=== PATIENT | female | born 2000 | race Two or more races ===

== ENCOUNTER 2025-06-16 02:20 | Emergency (ER) | payer SELFPAY ==
[2025-06-16 02:21] VITALS: BMI 31.8
[2025-06-16 02:27] VITALS: BP 116/79; PULSE 92; RESP 18; TEMP 37.2; O2SAT 99
--- NOTE | 2025-06-16 02:40 | XR_ITS ---
Examination: CT abdomen and pelvis without contrast. Coronal 3-D reconstructions. Sagittal 2-D reconstructions. Date and time of exam:June 16, 2025, 0425 hours INDICATIONS: Epigastric pain back pain beginning today CTDI: vol (mGy): 12.7 DLP: (mGycm): 727 Technique: Axial images of the abdomen have been obtained, 3 mm slice thickness Intravenous contrast material has not been administered. Low dose protocols were performed. One or more of the following dose reduction techniques were used; automated exposure control, adjustment of the mA and/or KV according to patient size, use of iterative reconstruction technique. Findings: Atelectasis in the right lower lobe No focal liver or splenic lesions Suspicious for gallstones No pancreatic or adrenal mass. No renal or ureteral calculi Aorta normal size No bowel obstruction Normal appendix No diverticulitis No pelvic mass Contracted urinary bladder IMPRESSION: Suspicious for gallstones, gallbladder wall is not thickened Normal appendix No bowel obstruction
--- NOTE | 2025-06-16 02:58 | PD.EDBACK ---
ED Back Injury Pain RME/HPI General Chief Complaint: Back Pain/Injury Stated Complaint: BACK PAIN X 1DAY Time Seen by Provider: 06/16/25 02:40 Arrival date/time: 06/16/25 02:20 24F with no significant PMH presents to ED with 1 day of sudden back pain and N/V. Patient denies dysuria/hematuria, bowel/bladder incontinence, URI symptoms, hematuria/dysuria, SOB, and paresthesia. Limitations: no limitations Related Data Previous Rx's ?Medication ?Instructions ?Recorded ondansetron 4 mg disintegrating 1 tab PO Q6HR PRN VOMITING #20 tabs 09/21/17 tablet (Zofran ODT) Allergies Allergy/AdvReac Type Severity Reaction Status Date / Time NKA* Allergy Uncoded 09/21/17 17:42 Review of Systems Review of Systems Systems Reviewed: All systems reviewed, normal except as documented Constitutional Constitutional: Reports system reviewed and no additional complaints, except as documented, Denies fever(s) and Denies headache(s) ENT Ears, Nose, Mouth, and Throat: Denies disequilibrium and Denies headache(s) Cardiovascular Cardiovascular: Reports system reviewed and no additional complaints, except as documented, Denies chest pain and Denies dyspnea Respiratory Respiratory: Reports system reviewed and no additional complaints, except as documented, Denies cough and Denies dyspnea Gastrointestinal Gastrointestinal: Reports system reviewed and no additional complaints, except as documented, Reports as per HPI, Denies abdominal pain, Reports nausea and Reports vomiting Musculoskeletal Musculoskeletal: Reports as per HPI and Reports back pain Neurologic Neurologic: Reports system reviewed and no additional complaints, except as documented, Denies confusion, Denies disequilibrium and Denies headache(s) Psychiatric Psychiatric: Denies confusion Past Medical History Social History SMOKING STATUS: Never smoker ED Exam General Limitations: Present no limitations General appearance: Present alert and in no apparent distress Head Head exam: Present atraumatic Eye Eye exam: Present normal appearance, PERRL and EOMI ENT ENT exam: Present normal exam, normal oropharynx and mucous membranes moist Neck Neck exam: Present normal inspection, full ROM and trachea midline Chest Chest inspection: Present normal inspection and symmetric chest wall rise Respiratory Respiratory exam: Present normal lung sounds bilaterally Cardiovascular Cardiovascular exam: Present regular rate, normal rhythm and normal heart sounds Abdominal Exam Abdominal exam: Present soft and normal bowel sounds Extremities Exam Extremities exam: Present normal inspection and full ROM Back Exam Back exam: Present full ROM and tenderness Neurological Exam Neurological exam: Present alert, oriented X3 and CN II-XII intact Psychiatric Psychiatric exam: Present normal affect and normal mood Skin Skin exam: Present warm, dry, intact and normal color Course Quality Measures none Orders Category Date Time Status CT abdomen pelvis wo con Stat Exams 06/16/25 02:40 Taken CBC Stat Lab 06/16/25 03:00 Completed CMP [Comprehensive Metabolic Panel] Stat Lab 06/16/25 03:00 Completed Drug Screen,Urine Stat Lab 06/16/25 03:15 Completed HCG Qualitative,Urine Stat Lab 06/16/25 03:15 Completed Lipase Stat Lab 06/16/25 03:00 Completed Urinalysis, C/S if Indicated Stat Lab 06/16/25 03:15 Completed Naproxen [Naprosyn] Med 06/16/25 02:41 Discontinued 500 mg PO X1 ONE Ondansetron Odt [Zofran Odt] Med 06/16/25 02:41 Discontinued 4 mg PO X1 ONE Vital Signs Vital signs: Vital Signs Temperature 99 F 06/16/25 02:27 Pulse Rate 92 06/16/25 02:27 Respiratory Rate 18 06/16/25 02:27 Blood Pressure 116/79 06/16/25 02:27 Pulse Oximetry (%) 99 06/16/25 02:27 Oxygen Delivery Method Room Air 06/16/25 02:27 O2 at 99% on RA and WNLs Back Pain / Injury MDM Narrative MDM Narrative:: 24F with no significant PMH presents to ED with 1 day of sudden back pain and N/V. Patient denies dysuria/hematuria, bowel/bladder incontinence, URI symptoms, hematuria/dysuria, SOB, and paresthesia. Physical exam reveals some mid/low back tenderness. Patient is afebrile, calm, and alert. Telerad CT reading unremarkable except gallstones. Possible PNA, but patient denies cough. No leukocytosis. CMP unremarkable. Lipase normal. UA some RBCs, but no UTI. HCG neg. Meds improved symptoms. Back pain likely MSK in nature. [employer] given. Patient data External records reviewed:: [facility] previous records Clinical information provided by:: patient Social determinants that could affect healthcare access:: none Patient has the following chronic illnesses:: none How is presenting disease/condition affected by chronic disease/condition?: no chronic disease Evaluation data The following diagnostics were reviewed and interpreted by me:: lab results and radiology exam(s) Lab and/or radiology exams considered but not ordered:: ordered Interpretation Summary: above Medications / Prescriptions Medications or Prescriptions considered but not ordered:: ordered Medication administrations:: Medication Administration History Discontinued Medications Naproxen (Naproxen 250 Mg Tablet) 500 mg PO X1 ONE Stop: 06/16/25 02:42 Last Admin: 06/16/25 03:00 Dose: 500 mg Documented By: CHRISTEN Ondansetron HCl (Ondansetron Odt 4 Mg Tabrap) 4 mg PO X1 ONE; Protocol Stop: 06/16/25 02:42 Last Admin: 06/16/25 03:01 Dose: 4 mg Documented By: CHRISTEN above Consultations Consultation(s) initiated? (list below): No Diagnosis Differential diagnosis back pain/injury: lumbar radiculopathy, sciatica, strain of lumbar region, renal colic, pyelonephritis, thoracic back pain, AAA and discitis Most likely diagnosis given after review of the tests above:: back pain Admission Indicated Admission indicated?: not indicated Admission Request Was there a request for admission?: No Disposition Plan Disposition Plan: Discharge Discharge Attestation Discharge Attestation: The patient and all family members were given an opportunity to ask questions and understood the discharge instructions. Discharge instructions specifically effects, indications for sooner follow up or return to the emergency department, and the expected course of current diagnosis. Patient condition: Stable Discharge Plan Plan Patient Disposition: HOME (Self Care) Discharge Disposition comment: Stable Prescriptions/Referrals Prescriptions/Med Rec: No Action ondansetron [Zofran ODT] 4 MG/UDTABLET tablet,disintegrating 1 tab PO Q6HR PRN (Reason: VOMITING) Qty: 20 0RF Referrals: No Primary/Family,Physician [Primary Care Provider] - In 1 week Problem List Clinical Impression: Back pain Patient/Caregiver Discharge Instructions Education Materials: ED Back Pain (Acute or Chronic) Additional Instructions: Please follow-up with PCP within 24-48 hours and return immediately if symptoms worsen. If problem persists, recommend outpatient PT and/or MRI follow-up. In the meantime, rest, use ice/heat, and/or compression. Print Language: Setswana Stand Alone Forms: Patient Portal Info Letter NICHOLAS/REYNOLD Supervising Physician NICHOLAS/REYNOLD Supervising Physician: Dr. Pappas
[2025-06-16] MEDS: NAPROXEN 250 MG TABLET 500 MG PO (03:00)
[2025-06-16] MEDS: ONDANSETRON ODT 4 MG TABRAP PO (03:01)
[2025-06-16 03:13] LABS: Basophils # (Auto) 0.1 Thou/mm3 (0.0-0.2); Basophils % (Auto) 1 % (0-2.5); Eosinophils # (Auto) 0.3 Thou/mm3 (0.0-0.5); Eosinophils % (Auto) 3 % (0-10); Hematocrit 40.4 % (36.0-46.0); Hemoglobin 13.5 g/dL (12.0-16.0); Immature Granulocytes Auto 0.05 Thou/mm3 (0.00-0.00); Lymphocytes # (Auto) 5.2 Thou/mm3 (1.0-4.8); Lymphocytes % (Auto) 47 % (10-50); Mean Corpuscular HGB Conc 33.4 g/dl (31.0-37.0); Mean Corpuscular Hemoglobin 29.0 pg (25.0-35.0); Mean Corpuscular Volume 87 fL (80-100); Monocytes # (Auto) 0.7 Thou/mm3 (0.0-0.8); Monocytes % (Auto) 6 % (0-12); Neutrophils # (Auto) 4.8 Thou/mm3 (1.8-7.7); Neutrophils % (Auto) 44 % (37-80); Nucleated Red Blood Cell # 0.00 Thou/mm3 (0.00-0.00); Nucleated Red Blood Cell % 0 /100 WBC (0); Platelet Count 230 Thou/mm3 (140-440); RDW Standard Deviation 38.6 fL (36.4-46.3); Red Blood Count 4.66 Miln/mm3 (4.00-5.20); White Blood Count 11.0 Thou/mm3 (3.6-11.0)
[2025-06-16 03:29] LABS: Collection Type, Urine Clean Catch
[2025-06-16 03:33] LABS: Alanine Aminotransferase 25 U/L (10-49); Albumin, Serum 4.4 gm/dL (3.5-5.0); Albumin/Globulin Ratio 1.6 (1.2-2.2); Alkaline Phosphatase 80 U/L (46-116); Anion Gap 8 (7-16); Aspartate Amino Transferase 47 U/L (0-34); BUN/Creatinine Ratio 10 Ratio (12-20); Bilirubin,Total 0.3 mg/dL (0.3-1.2); Blood Urea Nitrogen 7 mg/dL (9-23); Calcium 9.7 mg/dL (8.3-10.6); Calcium (Corrected) 9.7 mg/dL (8.5-10.1); Carbon Dioxide 27.5 mMol/L (20.0-31.0); Chloride 107 mMol/L (98-107); Creatinine (Component) 0.7 mg/dL (0.6-1.3); Estimated Creatinine Clearance 125.4 mL/min (>60); Globulin 2.7 gm/dL (2.3-3.5); Glucose 103 mg/dL (74-106); Lipase 28 U/L (12-53); Osmolality,Calculated 281 (275-295); Potassium 3.7 mMol/L (3.4-5.1); Sodium 142 mMol/L (136-145); Total Protein 7.1 gm/dL (5.7-8.2); eGFR > 60 See Note
[2025-06-16 03:36] LABS: Bilirubin,Urine Negative (Negative); Blood,Urine 1+ (Negative); Clarity,Urine Clear (Clear/Hazy); Color,Urine Lt-Yellow (Lt Yel-Yel); Culture Indicated,Urine Not Indicated; Glucose, Urine Negative (Negative); Ketones,Urine Negative (Negative); Leukocyte Esterase,Urine Positive (Negative); Nitrite,Urine Negative (Negative); PH,Urine 6.0 (5.0-7.0); Protein,Urine Negative (Neg - Trace); RBC,Urine 8 /hpf (0-3); Specific Gravity,Urine 1.023 (1.001-1.035); Squamous Epithelial Cell,Urine 4 /hpf (0-5); Urobilinogen,Urine Negative mg/dL (0.0-1.0); WBC,Urine 2 /hpf (0-5)
[2025-06-16 03:40] LABS: Amphetamine/Methamp Scrn,U Negative (Negative); Barbiturate Screen,Urine Negative (Negative); Benzodiazepines Screen,Urine Negative (Negative); Benzoylecgonine Screen, Ur Negative (Negative); Fentanyl Screen,Urine Negative (Negative); Opiate Screen,Urine Negative (Negative); THC Screen,Urine Negative (Negative)
[2025-06-16 03:46] LABS: HCG Qualitative,Urine Negative
--- NOTE | 2025-06-16 05:02 | PRELIM_ITS ---
CT scan of the abdomen and pelvis without intravenous contrast (axial sections with sagittal and coronal reformats) June 16, 2025 at 0425 hours Clinical History: Flank pain Comparison: No prior study is available for comparison. Findings: Small consolidation in the right lower lobe. The liver, pancreas, spleen, kidneys, and adrenals are unremarkable on this noncontrast study. Gallstones are present without evidence of acute cholecystitis. No evidence of bowel obstruction. The appendix is within normal limits. The uterus and ovaries are within normal limits. There is no mesenteric or retroperitoneal adenopathy. The urinary bladder is nondistended, with limited evaluation. There is no free fluid or free air. The osseous structures are unremarkable. Impression: 1. Small consolidation in the right lower lobe, atelectasis versus scarring versus small focus of pneumonia. 2. Gallstones without CT evidence of acute cholecystitis; if acute cholecystitis is clinically suspected, consider correlation with right upper quadrant ultrasound. 3. No evidence of kidney or ureter disturbance. Report Electronically Signed By: Luisito Spicer 06/16/2025 5:01:11 AM [EST]
[2025-06-16 05:21] VITALS: BP 116/72; PULSE 75; RESP 16; TEMP 37; O2SAT 98
== END 2025-06-16 05:22 | disposition home or self-care (01) ==
PROVIDERS: Physician Assistant; Emergency Provider Emergency Medicine
DX: M54.9 Dorsalgia, unspecified (principal); R10.13 Epigastric pain; R11.2 Nausea with vomiting, unspecified
CPT/HCPCS: 36415; 74176; 80053; 80307; 81001; 81025; 83690; 85025; 99283; Q0162; A9270